=== PATIENT | male | born 1985 | race Caucasian/White ===

== ENCOUNTER 2016-10-30 14:06 | Emergency (ER) | payer SELFPAY ==
[~2016-10-30] VITALS: Ht 175.3 cm; Wt 68.2 kg
[~2016-10-30 14:06] MED LIST: ONDA4TAB7 SL; PENI-82 PO; TRAM-10 PO
[2016-10-30 14:13] VITALS: TEMP 36.9; Ht 175.3 cm; Wt 68.2 kg
[2016-10-30] MEDS ORDERED: XYLOCAINE 1%/SOD BICARB 20 ML VIAL INFIL STA (14:53)
[2016-10-30] MEDS ORDERED: DIPHTHERIA/TETANUS/PERTUSSIS 0.5 ML SYR/VIAL IM. ONE (15:00)
[2016-10-30] MEDS ORDERED: OXYCODONE HCL IR 5 MG TAB (IMMEDIATE RELEASE) PO STA (15:35)
--- NOTE | 2016-10-30 15:44 | DIAGNOSTIC IMAGING REPORT ---
RIGHT HAND MIN 3 VIEWS ROUTINE CLINICAL HISTORY: Right hand pain status post trauma. Laceration. COMPARISON: None. DISCUSSION: No fractures or dislocations are visualized. No radiopaque foreign bodies are evident. There is a bone island in the region of the radial styloid. IMPRESSION: No fractures or dislocations identified. Electronically signed by: Jose Slater M.D. 10/30/2016 3:42 PM Dictated Date/Time: 10/30/2016 3:42 PM
[2016-10-30] MEDS ORDERED: CEPH500C PO (16:38)
--- NOTE | 2016-10-30 16:39 | EMERGENCY ROOM VISIT NOTE ---
ED Visit Note First contact with patient: 14:42 Chief Complaint: "Cut on right hand". History of Present Illness: This patient is a 31-year-old male who presents to the Emergency Department via private vehicle accompanied by male for evaluation of their right hand laceration. Patient sustained the laceration while attending to repair a vehicle, when he pushed his hand forward sustaining a laceration to the dorsal aspect of the third and fourth digit at the proximal base. They report a moderate amount of bleeding initially. They deny any numbness or tingling into the distal extremity. They report no decreased range of motion of the affected digit. Patient rates his current discomfort as a 8/10. Patient's Tetanus status is not believed to be currently up-to-date. Medications: As noted below Allergies: Bee sting, coconut PMH: None reported SHx: Pt. lives with mother. He admits to tobacco use and denies alcohol use. ROS: All pertinent positive and negative review of systems are appropriately documented in the History of Present Illness. Physical Exam: VITAL SIGNS - Vital signs and nursing notes were reviewed. Afebrile, normotensive, non-tachycardic and saturating well on room air 94%. GENERAL -31-year-old male appearing his stated age who is in no acute distress. Communicates well with provider and answers questions appropriately. SKIN - There is a 2 cm long laceration noted dorsal aspect of the right hand at the base of the third and fourth digits. The edges gape apart with traction. No foreign bodies appreciated. Upon further examination there are no deep structures including vessel, tendon, or bony structures appreciated. There is minimal active bleeding noted. MUSCULOSKELETAL - Laceration as described above. +5/5 strength appreciated of the affected digit. Full range of motion of the affected digit. NEUROLOGIC - Spinothalamic tract was found to be intact with ability to discriminate sharp versus dull sensation. No sensory defects of the dorsal column were appreciated utilizing light touch for evaluation. VASCULAR - Capillary refill was brisk. ED Course: Patient was seen and evaluated by myself. Costs and benefits of performing primary wound closure versus no repair were discussed with the patient who verbalizes understanding. Verbal consent was obtained prior to performing the procedure. 6mL of 1% buffered lidocaine was used to perform a localized anesthetization of the hand. The wound was cleansed and prepped in the typical sterile fashion utilizing normal saline and Betadine. The wound was sterilely draped. Once proper anesthetization was established, the wound was further examined and demonstrated a "dirty" wound, as the grease and such from the vehicle was in the wound. The wound was copiously irrigated with normal saline and Betadine. The wound was closed using 8 simple, 5-0 nylon sutures with the wound edges being well approximated. Patient tolerated the procedure well. No complications were met. The wound was cleansed and dressed with a Bacitracin dressing. A metal splint was applied to the finger for comfort. Patient received their Adacel vaccination. Patient educated on worrisome symptoms for return visit to the Emergency Department. Patient discharged to home in good condition. During his stay he was given 5 mg of OxyIR for his pain. He was encouraged to follow up with Dr. La, for his injury. He has been prescribed Keflex 500mg 3 times daily for 7 days for infection prophylaxis. In evaluation treatment this patient following differential diagnoses were entertained: Fracture, dislocation, laceration, among others. Current/Historical Medications Scheduled Cephalexin Monohydrate (Keflex), 500 MG PO TID Allergies Coded Allergies: BEE STING (Unverified Allergy, Unknown, RASH, 10/30/16) Coconut (Unverified Allergy, Unknown, HIVES, 10/30/16) Vital Signs Date Time Temp Pulse Resp B/P Pulse Ox O2 Delivery O2 Flow Rate FiO2 10/30/16 16:55 90 18 112/78 94 10/30/16 14:13 36.9 83 18 128/80 94 Room Air Medications Administered Medications (Trade) Dose Ordered Sig/Yoly Route Start Time Stop Time Status Last Admin Dose Admin Diphtheria/ Pertussis/Tetanus Vacc (Adacel Inj) 0.5 ml ONCE ONCE IM. 10/30/16 15:00 10/30/16 15:01 DC 10/30/16 15:56 0.5 ML Oxycodone HCl (Roxicodone Immediate Rel Tab) 5 mg NOW STAT PO 10/30/16 15:35 10/30/16 15:36 DC 10/30/16 15:57 5 MG Departure Information Impression Primary Impression: Laceration Dispostion Home / Self-Care Condition GOOD Prescriptions Cephalexin Monohydrate (Keflex) 500 Mg Cap 500 MG PO TID for 7 Days, #21 CAP Prov: Jose Luis Foreman PA-C 10/30/16 Referrals No Doctor, Assigned (PCP) David La MD Patient Instructions My [facility] Additional Instructions Discharge Instructions: You have received 8 sutures on your right middle finger. These sutures are NOT dissolvable and WILL need to be removed by a health care provider in 10-12 days. You can return to the Emergency Department or contact your Primary Care Provider to have the sutures removed. Please wear the splint for comfort until the sutures are removed. Proper wound care is essential for adequate wound healing and infection prevention. You can shower and clean the wound with soap and water. Do not scour over the wound, pat dry with a towel. Do not submerse the wound (i.e. bathe or dish wash) until the sutures have been removed. You can use an antibiotic ointment with a dressing over the wound for the next 3-4 days. After this time you may leave the wound dry and open to the air. If crust develops over the wound you can use a Q-tip to apply a 1:1 peroxide:water solution to clean the wound. Look for signs of infection of the wound including: increased pain, swelling, foul discharge, streaking, or increased temperature. If any of these are noticed you should return to the Emergency Department for further assessment and treatment. As with any laceration you may have received nerve damage to the surrounding tissues. This damage may or may not be permanent. You should keep the area covered with sunscreen for the first 6 months to 1 year when at risk for exposure to help minimize scarring. You can also use scar reducing creams or Vitamin E oil to help minimize scarring. For pain control, you can use the following [id number] medicines (if >12 yo): - Regular strength (325mg/tab) Tylenol (acetaminophen) 2 tabs every 4-6 hours as needed. Do not exceed 12 tablets in a 24 hour period. Avoid taking more than 4 grams (4000 mg) of Tylenol per day. This includes any other sources of acetaminophen you may take on a regular basis. - Regular strength (200 mg/tab) Advil (ibuprofen) 1-2 tabs every 4-6 hours as needed. Do not exceed a dose of 3200 mg per day. Due to the depth of the laceration, it is recommended to follow-up with a hand specialist following today's visit. I was unable to appreciate any tendon damage. (Dr. La) Return to the emergency department if your symptoms worsen despite treatment course outlined above.
[2016-10-30 16:55] VITALS: BP 112/78; PULSE 90; O2SAT 94
== END 2016-10-30 16:55 | disposition home or self-care (01) ==
LOC: C.EDB 14:07 → C.EDD 16:55
DX: S61.212A Laceration without foreign body of right middle finger without damage to nail, initial encounter (principal); S61.214A Laceration without foreign body of right ring finger without damage to nail, initial encounter; W26.9XXA Contact with unspecified sharp object(s), initial encounter; Y93.89 Activity, other specified; Y99.8 Other external cause status; Z72.0 Tobacco use; Z23 Encounter for immunization